=== PATIENT | female | born 1995 | race Caucasian/White ===

== ENCOUNTER 2018-09-20 08:11 | Day surgery (SDC) | payer BC ==
--- NOTE | 2018-09-09 14:30 | HP ---
PREOPERATIVE HISTORY AND PHYSICAL EXAM: DATE OF ADMISSION/SURGERY: 09/20/18 [facility] DATE OF OFFICE VISIT/ENCOUNTER: 09/07/18 ATTENDING SURGEON: Svetlana Barron MD * (DICTATED BY MELANIE MILLER) PROCEDURE: Cyst excision, left wrist. CHIEF COMPLAINT: Cyst, left wrist. HISTORY OF PRESENT ILLNESS: This is a 23-year-old female, who complains of a painful cyst on the dorsal aspect of her left wrist. It has been present for several years. She has had it drained 3 times in [facility] where she is from. The most recent time was minimally helpful and the cyst has recurred after each aspiration. She has had increasing pain over the past 2 months and it is interfering with use of her left wrist. She denies any associated numbness or tingling. She denies any specific injury. This is her nondominant hand. 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 PAST MEDICAL HISTORY: Unremarkable. PAST SURGICAL HISTORY: 1. [place] teeth extraction. 2. Septoplasty. MEDICATIONS: None. ALLERGIES: No known drug allergies. FAMILY MEDICAL HISTORY: Diabetes. SOCIAL HISTORY: The patient is a personal injury legal assistant, PhD student at [employer]. She denies tobacco use and recreational drug use. She drinks alcohol on occasion. REVIEW OF SYSTEMS: Negative for general, cephalic, cardiovascular, respiratory , GI, , other musculoskeletal, integumentary, endocrine, neurologic, and hematologic symptoms. Infectious Disease: Negative for MRSA, hepatitis C, and HIV. PHYSICAL EXAMINATION GENERAL: Well-developed, well-nourished 23-year-old male, in no acute distress. VITAL SIGNS: Height 5 feet 4 inches, weight 136 pounds. Blood pressure 110/68. HEENT: Normocephalic, atraumatic. Pupils are equal, round, and reactive to light and accommodation. Extraocular movements are intact. Throat is clear. NECK: Supple. No palpable lymph nodes. PULMONARY: Lungs are clear to auscultation bilaterally. No wheezes, rales, or rhonchi. CARDIOVASCULAR: Regular rate and rhythm. S1, S2. No murmurs, rubs, or gallops. No edema. ABDOMEN: Positive bowel sounds. Soft, nontender. NEUROLOGICAL: Alert and oriented x3. Cranial nerves II through XII are intact. Sensation is intact to light touch. MUSCULOSKELETAL: On exam of her left wrist, she has a cystic mass on the dorsal aspect of the wrist at radiocarpal joint and also bit more radial. It is tender to palpation. She has pain with full flexion of her wrist and with extension with bearing weight on the hand. She can fully flex and extend her fingers. Neurovascular function is intact. IMAGING STUDIES: X-rays AP, lateral, and oblique of the left wrist show no bony abnormality. ASSESSMENT: Left wrist ganglion cyst. PLAN: The patient is scheduled to undergo a cyst excision left wrist with Dr. Barron on 09/20/18. She will return to the office 10 days postop for followup and suture removal. A prescription for Ultracet was e-scribed to the patient's pharmacy for postoperative pain management. MELANIE MILLER [id number]/[facility] #: [id number] PHILL
[~2018-09-20 08:11] MED LIST: Buffered Lidocaine 0.9% SYRIN* 5 ML/SYR SYRINGE INTRADERM ONE; Famotidine IV* 10 MG/ML 2 ML (20 mg) IV ONE; Famotidine IV* 10 MG/ML 2 ML (20 mg) ONE; Lidocaine 1% INJ* 10 MG/ML 30 ML SDV ONE
[2018-09-20] MEDS ORDERED: fentaNYL* 50 MCG/ML 2 ML VIAL (100 MCG VIAL) ONE (09:35)
[2018-09-20] MEDS ORDERED: Midazolam* 1 MG/ML 5 ML VIAL (5 MG) ONE (09:36)
[2018-09-20] MEDS ORDERED: Propofol* 10 MG/ML 20 ML BTL ONE (09:44)
[2018-09-20] MEDS ORDERED: Lidocaine 2% PF * 5 ML VIAL ONE (09:44)
[2018-09-20] MEDS ORDERED: Ondansetron INJ* 2 MG/ML VIAL ONE (09:44)
[2018-09-20] MEDS ORDERED: Ketorolac INJ* 30 MG/ML 1 ML VIAL ONE (09:44)
[2018-09-20] MEDS ORDERED: Acetaminophen TAB* 325 MG PO PRN (10:02)
[2018-09-20 10:57] VITALS: BP 91/56
--- NOTE | 2018-09-21 08:45 | OP ---
DATE OF OPERATION: 09/20/18 [facility] DATE OF : [birth year] SURGEON: Svetlana Barron MD. SUPERVISOR ENGINE ASSEMBLY: MELANIE Silva. ANESTHESIA: Local MAC. PRE-OP DIAGNOSIS: Left dorsal wrist ganglion. POST-OP DIAGNOSIS: Left dorsal wrist ganglion. OPERATIVE PROCEDURE: Removal left dorsal wrist ganglion. ESTIMATED BLOOD LOSS: Zero. TOURNIQUET TIME: Approximately 20 minutes. INDICATIONS FOR PROCEDURE: Marquita is a 23-year-old female with a painful mass on the dorsal aspect of her left wrist. She has had it aspirated in the past and it has recurred. She presents now for left wrist excision ganglion. DESCRIPTION OF PROCEDURE: The patient was brought to the operating room, was given sedation anesthetic, and local infiltration with 10 cc plus an additional 6 cc during the procedure of 1% plain lidocaine overlying the mass. The skin of her left hand and forearm were prepped and draped in the usual sterile fashion. The hand and forearm were exsanguinated and the tourniquet elevated to 250 mmHg. A transverse incision centered over the mass. We dissected through the subcutaneous tissue. The extensor tendons were retracted by the ophthalmology surgical technician, Calista Noyola and the mass was carefully dissected off of the dorsal wrist capsule. It extended quite far radially and the branches of the radial sensory nerves were also protected by the ophthalmology surgical technician, Calista Noyola. The mass was removed and was emanating from the dorsal aspect of the scapholunate ligament. The dorsal aspect of the ligament was cauterized with a Bovie as were the edges of the wrist joint capsule. The wound was irrigated and the skin edges were reapproximated with 4-0 nylon suture. The wounds were dressed with Xeroform, 4x4, Webril, and an Mason wrap. The patient tolerated the procedure well and was brought to the recovery room in good condition. [id number]/[facility] #: [id number] MTDLianna
== END 2018-09-20 11:17 | disposition home or self-care (01) ==
LOC: OREAST 08:11
PROVIDERS: ATTEND Orthopaedic Surgery
DX: M67.432 Ganglion, left wrist (principal)
CPT/HCPCS: 81025; 88304; J1885; J2250; J2405; J2704; J3010

== ENCOUNTER 2019-07-18 12:22 | Day surgery (SDC) | payer BC ==
[~2019-07-18 12:22] MED LIST changes: +Acetaminophen TAB* 325 MG PO ONE; -Buffered Lidocaine 0.9% SYRIN* 5 ML/SYR SYRINGE INTRADERM ONE; +Buffered Lidocaine 1% SYRIN* 1 ML/SYRINGE INTRADERM ONE; -Famotidine IV* 10 MG/ML 2 ML (20 mg) ONE; +Gabapentin CAP(*) 300 MG PO ONE; +Lactated Ringers 1000 ML Bag* 1,000 ML IV SCH; -Lidocaine 1% INJ* 10 MG/ML 30 ML SDV ONE
[2019-07-18] MEDS ORDERED: ceFAZolin 2 GM PREMIX in ORs 2 GM/50 ML BAG ONE (13:01)
[2019-07-18] MEDS ORDERED: Famotidine IV* 10 MG/ML 2 ML (20 mg) ONE (13:01)
[2019-07-18] MEDS ORDERED: Acetaminophen TAB* 325 MG ONE (13:01)
[2019-07-18] MEDS ORDERED: Dexamethasone IV* 4 MG/ML 1 ML (4 MG) IV SLOW PU ONE (15:43)
[2019-07-18] MEDS ORDERED: Dexamethasone IV* 4 MG/ML 1 ML (4 MG) ONE (15:45)
[2019-07-18] MEDS ORDERED: fentaNYL* 50 MCG/ML 5 ML VIAL (250 MCG VIAL) ONE (16:00)
[2019-07-18] MEDS ORDERED: Ketorolac INJ* 30 MG/ML 1 ML VIAL ONE (16:00)
[2019-07-18] MEDS ORDERED: Lidocaine 2% PF * 5 ML VIAL ONE (16:00)
[2019-07-18] MEDS ORDERED: Propofol* 10 MG/ML 20 ML BTL ONE (16:00)
[2019-07-18] MEDS ORDERED: Ondansetron INJ* 2 MG/ML VIAL ONE (16:00)
[2019-07-18] MEDS ORDERED: Midazolam* 1 MG/ML 5 ML VIAL (5 MG) ONE (16:00)
[2019-07-18] MEDS ORDERED: Bupivacaine 0.25% W/EPI* 10 ML SDV ONE (16:14)
[2019-07-18] MEDS ORDERED: fentaNYL* 50 MCG/ML 2 ML VIAL (100 MCG VIAL) ONE ×2 (16:34→17:46)
[2019-07-18] MEDS ORDERED: Naloxone* 0.4 MG/ML 1 ML VIAL IV PRN (17:03)
[2019-07-18] MEDS: fentaNYL* 50 MCG/ML 2 ML VIAL (100 MCG VIAL) IV PRN ×2 (17:47→18:18)
[2019-07-18 19:13] VITALS: BP 104/72
--- NOTE | 2019-07-19 03:27 | OP ---
DATE OF OPERATION: 07/18/19 [facility] DATE OF : [birth year] SURGEON: Stuart Sampson MD ROUTE CLERK: MELANIE Narvaez. A physician sales assistant institutional sales was required for the length of the procedure for assistance with patient positioning, retraction, and closure. ANESTHESIOLOGIST: Dr. Edson Morales. ANESTHESIA: General anesthesia, local anesthesia with 20 cc of Marcaine 0.25% with epinephrine. PRE-OP DIAGNOSIS: Left thigh lesion, likely painful fibrosis or scar tissue, subcutaneous. POST-OP DIAGNOSIS: Left thigh lesion, likely painful fibrosis or scar tissue, subcutaneous. OPERATIVE PROCEDURE: Open excision lesion or tumor, left thigh, subcutaneous, greater than 5 cm in length. POSITIONING: Lateral decubitus using a beanbag. ANTIBIOTICS: Ancef 2 g IV. IV FLUIDS: 800 cc of crystalloid. [id number] TIME: Approximately 27 minutes. SPECIMENS: Multiple pieces of what appeared to be scar tissue were excised and sent to Pathology. IMPLANTS: None. ESTIMATED BLOOD LOSS: Minimal. COMPLICATIONS: None. 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 The pain was insufficiently responsive to a full spectrum of nonoperative management. MRI demonstrated some type of lesion in the left lateral thigh. It is present subcutaneous, approximately 1 to 1.5 cm deep from the skin. The lesion was measured by Radiology to be 3.2 cm x 3 mm x 4.4 cm in size. The patient opted for excision. Discussed risks and potential complications of procedure including bleeding, infection, nerve or blood vessel injury, recurrence of lesion and pain and tenderness. DESCRIPTION OF PROCEDURE: In preoperative holding, the patient signed a written consent. Operative extremity was marked in preoperative holding. Also in preoperative holding, I probed the lateral thigh with the patient. She indicated to me where she was most tender. I celia a sitka which was more oval in shape to indicate the location where the patient was most tender. This did correspond with very subtle soft tissue swelling appreciated on my palpation, but only very subtly. The patient was brought back to the operating room, placed supine on operating room table. Sedated and LMA. The patient was converted into the lateral decubitus position with the left side up. Axillary roll placed. All bony prominences padded. Beanbag was hardened. We prepped and draped the left lateral thigh. Surgical time-out was performed. I made a longitudinal skin incision through the area of trace soft tissue swelling with the preoperative markings present. My incision might have been 10 to 15 cm in length. Dissected down through subcutaneous tissue. I came across two layers of abnormal tissue - one was a sheet of tissue positioned more obliquely, the other one was more in the plane of the skin in the underlying fascia. Both were white and had the appearance of scar tissue. I sharply excised both. These in effect were linked to each other and likely were both included in the scar tissue described by MRI. The dimensions were larger than that found on MRI preoperatively. Both in proximal to distal and medial to lateral, the dimensions were greater than 5 cm. All the scar tissues were sharply excised. I probed in all directions with my fingers for additional scar tissue, but none was found. We were not yet down to the muscle fascia layer, which was visible under a little bit more subcutaneous tissue. Irrigation. Closure of the subcutaneous tissue with buried simple stitches using Vicryl 2.0 suture. Closure of the subcuticular layer with a running stitch using Monocryl 4.0 suture. Mastisol, Steri-Strips. 20 cc of local anesthesia was injected about the skin incision. 4x4s, Tegaderm. The patient was awakened, extubated and transferred to the PACU. DISPOSITION: The patient was discharged home when medically stable. She will take tramadol as needed for pain control. She will see me in 10 to 14 days postoperatively in clinic. Wound care instructions provided. The patient was given an Mason bandage to wrap for compression around the left thigh as needed. Activity as tolerated. [id number]/[facility] #: [id number] PHILL
== END 2019-07-18 19:16 | disposition home or self-care (01) ==
LOC: OR 12:22
PROVIDERS: ATTEND Orthopaedic Surgery
DX: R22.42 Localized swelling, mass and lump, left lower limb (principal)
CPT/HCPCS: 81025; 88305; A9270-GY; J0690; J1100; J1885; J2250; J2405; J2704; J3010